=== PATIENT | male | born 1950 | race Caucasian/White ===

== ENCOUNTER 2018-03-08 15:19 | Emergency (ER) | payer BC, MEDICARE ==
[~2018-03-08] VITALS: Ht 190.5 cm; Wt 67.4 kg
[2018-03-08 15:23] VITALS: BP 119/68
== END 2018-03-08 16:25 | disposition home or self-care (01) ==
LOC: ED 16:18
DX: C76.0 Malignant neoplasm of head, face and neck (principal); C79.89 Secondary malignant neoplasm of other specified sites
CPT/HCPCS: 99283

== ENCOUNTER 2018-03-09 23:20 | Inpatient (IN) | payer MEDICARE ==
[~2018-03-09] VITALS: Ht 190.5 cm; Wt 65.1 kg
[2018-03-10] MEDS ORDERED: SODIUM CHLORIDE FLUSH 10ML SYR IVF ONE
[2018-03-10] MEDS ORDERED: CLIN150C14 PO (00:04)
[2018-03-10] MEDS ORDERED: PRED50TA PO (00:05)
[2018-03-10] MEDS ORDERED: ACETAMINOPHEN 325 MG TABLET PO PRN ×2 (01:00→12:30)
[2018-03-10] MEDS ORDERED: BISACODYL 10 MG SUPP PR PRN ×2 (01:00→16:00)
[2018-03-10] MEDS ORDERED: ONDANSETRON 2MG/ML, 2ML IVPush PRN (01:00)
[2018-03-10] MEDS ORDERED: ENALAPRILAT 1.25 MG/ML, 2ML IVPush PRN (01:00)
[2018-03-10] MEDS ORDERED: ONDANSETRON ODT 4 MG PO PRN (01:00)
[2018-03-10] MEDS ORDERED: POLYETHYLENE GLYCOL 17 GM PACKET PO PRN (01:00)
[2018-03-10] MEDS ORDERED: DOCUSATE 100 MG CAPSULE PO PRN (01:00)
[2018-03-10] MEDS ORDERED: HYDROcodone/APAP 5/325 TABLET PO PRN (01:00)
[2018-03-10] MEDS: SODIUM CHLORIDE 0.9% 1,000 ML IV SCH ×3 (01:10→17:32)
[2018-03-10 02:08] VITALS: BP 113/70
[2018-03-10 03:26] VITALS: BP 120/59
[2018-03-10] MEDS: LEVOTHYROXINE 100 MCG TABLET PO SCH (05:02)
[2018-03-10 07:28] VITALS: BP 120/59
[2018-03-10 08:12] LABS: MEAN CORPUSCULAR HEMOGLOBIN 29.1 pg (27.5-34.5); MEAN CORPUSCULAR VOLUME 88.2 fL (81-97); MEAN PLATELET VOLUME 8.1 fL (7.4-10.4); PLATELET COUNT 288 x10^3/uL (130-400); RED BLOOD COUNT 3.87 x10^6/uL (4.38-5.82); RED CELL DISTRIBUTION WIDTH 16.4 % (9.4-14.8)
[2018-03-10 08:21] LABS: ANION GAP 8 mmol/L (5-15); CALCIUM 7.6 mg/dL (8.5-10.1); CHLORIDE 97 mmol/L (98-107); CREATININE 0.41 mg/dL (0.7-1.3)
[2018-03-10 08:33] LABS: MD YES
[2018-03-10 08:34] LABS: EOS#(MANUAL) 0.22 x10^3/uL (0.0-0.4); EOS% (MANUAL) 1 % (1-7); LYMPH#(MANUAL) 0.65 x10^3/uL (1-3.4); LYMPHS% (MANUAL) 3 % (22-44); MONOS#(MANUAL) 0.43 x10^3/uL (0.3-2.7); MONOS% (MANUAL) 2 % (2-9); SEG#(MANUAL) 20.21 x10^3/uL (1.8-6.8); SEGS% (MANUAL) 94 % (42-75); TOXIC GRAN 1+
[2018-03-10 08:35] LABS: <PLATELET ESTIMATE> ADEQUATE; <PLT MORPHOLOGY> NORMAL PLT MORPH; <RBC MORPHOLOGY> NORMAL
[2018-03-10] MEDS: CLINDAMYCIN 150 MG CAPSULE PO SCH (08:47)
[2018-03-10] MEDS: predniSONE 50MG TABLET PO SCH (08:47)
[2018-03-10] MEDS ORDERED: LIDOCAINE/PF 1%, 30ML ONE (10:59)
[2018-03-10] MEDS ORDERED: EPINEPHRINE 1 MG/ML, 1ML ONE (10:59)
[2018-03-10] MEDS ORDERED: LIDOCAINE 1%-EPI 1:100K, 30ML INFIL ONE (11:08)
[2018-03-10] MEDS ORDERED: FUROSEMIDE 20 MG/2 ML ONE (11:23)
[2018-03-10] MEDS ORDERED: DEXMEDETOMIDINE 200 MCG/2 ML ONE (11:28)
[2018-03-10] MEDS ORDERED: CEFAZOLIN 1,000 MG ONE (11:36)
[2018-03-10] MEDS ORDERED: PROPOFOL 10 MG/ML, 20ML ONE (11:36)
[2018-03-10] MEDS ORDERED: PHENYLEPHRINE 10 MG/ML ONE (11:36)
[2018-03-10] MEDS ORDERED: MIDAZOLAM 1 MG/ML, 2ML ONE ×2 (11:52→13:01)
[2018-03-10] MEDS ORDERED: FENTANYL PF 100 MCG/2ML ONE (12:01)
[2018-03-10] MEDS ORDERED: HYDROCORTISONE 100 MG INJ. ONE (12:28)
[2018-03-10] MEDS ORDERED: ALBUTEROL SULFATE 2.5 MG/3 ML NPPB PRN (12:30)
[2018-03-10] MEDS ORDERED: FENTANYL PF 100 MCG/2ML IV PRN (12:30)
[2018-03-10] MEDS ORDERED: OXYcodone 5 MG/5 ML ORAL.SOL UDC PO PRN (12:30)
[2018-03-10] MEDS ORDERED: HYDROCORTISONE 100 MG INJ. IVPush ONE (13:00)
[2018-03-10] MEDS ORDERED: MIDAZOLAM 1 MG/ML, 2ML IVPush ONE (13:30)
[2018-03-10] MEDS ORDERED: PHARMACY MAY ADJ FOR RENAL FX MC SCH (16:00)
[2018-03-10] MEDS ORDERED: LIDOCAINE-MPF 1%, 2ML ENDO PRN (16:00)
[2018-03-10] MEDS ORDERED: SENNOSIDES 8.8 MG/5 ML ORAL SOL NG PRN (16:00)
[2018-03-10] MEDS ORDERED: MIDAZOLAM 1 MG/ML, 2ML IVPush PRN (16:00)
[2018-03-10] MEDS: ALBUTEROL/IPRATROPIUM 2.5MG/0.5MG, 3 ML INLINE SCH ×2 (16:00→21:39)
[2018-03-10] MEDS ORDERED: LACTULOSE 20 GM/30 ML UDC NG PRN (16:00)
[2018-03-10] MEDS ORDERED: SENNA/DOCUSATE TABLET NG PRN (16:00)
[2018-03-10 16:27] LABS: ALBUMIN 2.6 g/dL (3.4-5.0); ANION GAP 5 mmol/L (5-15); CALCIUM 7.5 mg/dL (8.5-10.1); CHLORIDE 98 mmol/L (98-107); CREATININE 0.48 mg/dL (0.7-1.3); TRIGLYCERIDES 51 mg/dL (50-200)
[2018-03-10] MEDS: FAMOTIDINE 20 MG/2 ML IV SCH (17:32)
[2018-03-10 21:56] VITALS: BP 101/55
[2018-03-11] MEDS: ALBUTEROL/IPRATROPIUM 2.5MG/0.5MG, 3 ML INLINE SCH ×3 (01:40→11:00)
[2018-03-11 02:33] LABS: ALANINE AMINOTRANSFERASE 20 U/L (12-78); ALBUMIN 2.5 g/dL (3.4-5.0); ANION GAP 7 mmol/L (5-15); CALCIUM 7.4 mg/dL (8.5-10.1); CHLORIDE 102 mmol/L (98-107); CREATININE 0.56 mg/dL (0.7-1.3)
[2018-03-11 02:36] LABS: ALKALINE PHOSPHATASE 67 U/L (45-117); BILIRUBIN,TOTAL 0.6 mg/dL (0.2-1.0); TOTAL PROTEIN 5.4 g/dL (6.4-8.2)
[2018-03-11 02:39] LABS: BASOPHILS # (AUTO) 0.03 x10^3/uL (0-0.1); BASOPHILS % (AUTO) 0 % (0-1); EOSINOPHILS # (AUTO) 0.13 x10^3/uL (0-0.4); EOSINOPHILS % (AUTO) 1 % (1-7); LYMPHOCYTES # (AUTO) 0.63 x10^3/uL (1-3.4); LYMPHOCYTES % (AUTO) 5 % (22-44); MD NO; MEAN CORPUSCULAR HEMOGLOBIN 29.8 pg (27.5-34.5); MEAN CORPUSCULAR HGB CONC 33.4 g/dL (33.2-36.2); MEAN CORPUSCULAR VOLUME 89.3 fL (81-97); MEAN PLATELET VOLUME 7.8 fL (7.4-10.4); MONOCYTES # (AUTO) 0.35 x10^3/uL (0.2-0.8); MONOCYTES % (AUTO) 3 % (2-9); NEUTROPHILS % (AUTO) 91 % (42-75); PLATELET COUNT 268 x10^3/uL (130-400); RED BLOOD COUNT 3.32 x10^6/uL (4.38-5.82); RED CELL DISTRIBUTION WIDTH 16.4 % (9.4-14.8)
[2018-03-11 04:00] VITALS: BP 101/56
[2018-03-11] MEDS: FAMOTIDINE 20 MG/2 ML IV SCH ×2 (04:53→18:01)
[2018-03-11] MEDS: LEVOTHYROXINE 100 MCG TABLET PO SCH (06:07)
[2018-03-11] MEDS: SODIUM CHLORIDE 0.9% 1,000 ML IV SCH ×2 (06:42→20:17)
[2018-03-11] MEDS ORDERED: PROPOFOL 100 ML IV ONE ×2 (07:57→09:10)
[2018-03-11] MEDS: PROPOFOL 100 ML IV PRN ×3 (08:00→20:17)
[2018-03-11] MEDS ORDERED: VECURONIUM 10 MG ONE ×2 (08:06→09:23)
[2018-03-11] MEDS: VECURONIUM 10 MG IVPush PRN ×3 (08:10→11:34)
[2018-03-11] MEDS: predniSONE 50MG TABLET PO SCH (09:00)
[2018-03-11] MEDS: CLINDAMYCIN 150 MG CAPSULE PO SCH (09:00)
[2018-03-11] MEDS ORDERED: LIDOCAINE-MPF 2% ,5ML ONE (09:00)
[2018-03-11] MEDS ORDERED: VISIPAQUE 320MG/ML, 50ML BOTTLE ONE (13:45)
[2018-03-11] MEDS ORDERED: VISIPAQUE 320 MG/ML, 150ML BOTTLE ONE (13:45)
[2018-03-12] MEDS: PROPOFOL 100 ML IV PRN (01:40)
[2018-03-12] MEDS: FENTANYL PF 100 MCG/2ML IVPush PRN (03:39)
[2018-03-12 04:00] VITALS: BP 97/61
[2018-03-12 04:24] LABS: ANION GAP 5 mmol/L (5-15); CALCIUM 7.5 mg/dL (8.5-10.1); CHLORIDE 107 mmol/L (98-107); CREATININE 0.33 mg/dL (0.7-1.3)
[2018-03-12 04:25] LABS: BASOPHILS # (AUTO) 0.02 x10^3/uL (0-0.1); BASOPHILS % (AUTO) 0 % (0-1); EOSINOPHILS # (AUTO) 0.07 x10^3/uL (0-0.4); EOSINOPHILS % (AUTO) 1 % (1-7); LYMPHOCYTES # (AUTO) 0.37 x10^3/uL (1-3.4); LYMPHOCYTES % (AUTO) 4 % (22-44); MD NO; MEAN CORPUSCULAR HEMOGLOBIN 29.1 pg (27.5-34.5); MEAN CORPUSCULAR HGB CONC 33.1 g/dL (33.2-36.2); MEAN PLATELET VOLUME 8.1 fL (7.4-10.4); MONOCYTES # (AUTO) 0.31 x10^3/uL (0.2-0.8); MONOCYTES % (AUTO) 4 % (2-9); NEUTROPHILS # (AUTO) 7.67 x10^3/uL (1.8-6.8); NEUTROPHILS % (AUTO) 91 % (42-75); PLATELET COUNT 204 x10^3/uL (130-400); RED BLOOD COUNT 2.73 x10^6/uL (4.38-5.82); RED CELL DISTRIBUTION WIDTH 16.6 % (9.4-14.8)
[2018-03-12] MEDS: FAMOTIDINE 20 MG/2 ML IV SCH ×2 (04:49→16:13)
[2018-03-12] MEDS: LEVOTHYROXINE 100 MCG TABLET PO SCH (06:09)
[2018-03-12] MEDS: SODIUM CHLORIDE 0.9% 1,000 ML IV SCH ×2 (06:10→16:13)
[2018-03-12] MEDS: predniSONE 50MG TABLET PO SCH (08:34)
[2018-03-12] MEDS: morphine SULFATE 10 MG/ML, 1ML IVPush PRN (20:42)
[2018-03-13] MEDS: FENTANYL PF 100 MCG/2ML IVPush PRN (01:48)
[2018-03-13] MEDS: SODIUM CHLORIDE 0.9% 1,000 ML IV SCH (01:49)
[2018-03-13 03:51] LABS: MEAN CORPUSCULAR HEMOGLOBIN 29.1 pg (27.5-34.5); MEAN CORPUSCULAR HGB CONC 32.9 g/dL (33.2-36.2); MEAN CORPUSCULAR VOLUME 88.3 fL (81-97); MEAN PLATELET VOLUME 8.1 fL (7.4-10.4); PLATELET COUNT 162 x10^3/uL (130-400); RED BLOOD COUNT 2.62 x10^6/uL (4.38-5.82); RED CELL DISTRIBUTION WIDTH 16.2 % (9.4-14.8)
[2018-03-13 03:56] LABS: ANION GAP 4 mmol/L (5-15); CALCIUM 7.6 mg/dL (8.5-10.1); CHLORIDE 104 mmol/L (98-107); CREATININE 0.46 mg/dL (0.7-1.3); TRIGLYCERIDES 35 mg/dL (50-200)
[2018-03-13] MEDS: FAMOTIDINE 20 MG/2 ML IV SCH (03:56)
[2018-03-13 03:58] LABS: MD YES
[2018-03-13 04:02] LABS: ANISOCYTOSIS 1+; LYMPHS% (MANUAL) 1 % (22-44); MONOS#(MANUAL) 0.38 x10^3/uL (0.3-2.7); MONOS% (MANUAL) 4 % (2-9); OVALOCYTES 1+; SEG#(MANUAL) 9.12 x10^3/uL (1.8-6.8); SEGS% (MANUAL) 95 % (42-75)
[2018-03-13 04:03] LABS: SCHISTOCYTES 1+
[2018-03-13 04:04] LABS: <PLATELET ESTIMATE> ADEQUATE; <PLT MORPHOLOGY> NORMAL PLT MORPH; POLYCHROMASIA 1+; TOXIC GRAN 1+
[2018-03-13] MEDS: morphine SULFATE 10 MG/ML, 1ML IVPush PRN ×2 (05:00→23:14)
[2018-03-13] MEDS: LEVOTHYROXINE 100 MCG TABLET PO SCH (05:59)
[2018-03-13] MEDS ORDERED: MAGNESIUM SULFATE PMX 2GM/50ML 50 ML IV ONE (08:30)
[2018-03-13] MEDS ORDERED: POTASSIUM PHOSPHATE 44 MEQ in SODIUM CHLORIDE 0.9% 500 ML IV ONE (08:30)
[2018-03-13] MEDS: PIPERACILLIN/TAZO/PMX 3.375GM 50 ML IV SCH ×3 (08:56→20:04)
[2018-03-13] MEDS: predniSONE 50MG TABLET PO SCH (09:23)
[2018-03-13] MEDS: FAMOTIDINE 20 MG TABLET NG SCH (20:06)
[2018-03-14] VITALS (7 sets, daily range): BP systolic 100–133; BP diastolic 53–76
[2018-03-14] MEDS: morphine SULFATE 10 MG/ML, 1ML IVPush PRN ×3 (02:07→23:09)
[2018-03-14] MEDS: PIPERACILLIN/TAZO/PMX 3.375GM 50 ML IV SCH ×4 (02:07→20:49)
[2018-03-14] MEDS: LEVOTHYROXINE 100 MCG TABLET PO SCH (04:40)
[2018-03-14 05:07] LABS: MEAN CORPUSCULAR HEMOGLOBIN 29.7 pg (27.5-34.5); MEAN CORPUSCULAR HGB CONC 33.7 g/dL (33.2-36.2); MEAN CORPUSCULAR VOLUME 88.2 fL (81-97); MEAN PLATELET VOLUME 8.3 fL (7.4-10.4); PLATELET COUNT 139 x10^3/uL (130-400); RED BLOOD COUNT 2.36 x10^6/uL (4.38-5.82); RED CELL DISTRIBUTION WIDTH 16.9 % (9.4-14.8)
[2018-03-14 05:14] LABS: ALBUMIN 1.9 g/dL (3.4-5.0); ANION GAP 7 mmol/L (5-15); CALCIUM 7.7 mg/dL (8.5-10.1); CHLORIDE 101 mmol/L (98-107)
[2018-03-14 05:17] LABS: ALANINE AMINOTRANSFERASE 34 U/L (12-78); ALKALINE PHOSPHATASE 71 U/L (45-117); BILIRUBIN,TOTAL 0.5 mg/dL (0.2-1.0); CREATININE 0.45 mg/dL (0.7-1.3); TOTAL PROTEIN 4.8 g/dL (6.4-8.2)
[2018-03-14 05:37] LABS: MD YES
[2018-03-14 05:41] LABS: BAND#(MANUAL) 0.08 x10^3/uL; BANDS%(MANUAL) 1 % (0-7); LYMPH#(MANUAL) 0.16 x10^3/uL (1-3.4); LYMPHS% (MANUAL) 2 % (22-44); MONOS#(MANUAL) 0.08 x10^3/uL (0.3-2.7); MONOS% (MANUAL) 1 % (2-9); SEG#(MANUAL) 7.49 x10^3/uL (1.8-6.8); SEGS% (MANUAL) 96 % (42-75)
[2018-03-14 05:42] LABS: ANISOCYTOSIS 1+; OVALOCYTES 1+; TOXIC GRAN 1+
[2018-03-14 05:43] LABS: SCHISTOCYTES 1+
[2018-03-14 05:44] LABS: POLYCHROMASIA 1+
[2018-03-14 05:45] LABS: <PLATELET ESTIMATE> ADEQUATE; <PLT MORPHOLOGY> NORMAL PLT MORPH; ECHINOCYTES 1+
[2018-03-14] MEDS ORDERED: POTASSIUM PHOSPHATE 44 MEQ in SODIUM CHLORIDE 0.9% 500 ML IV ONE (08:30)
[2018-03-14] MEDS ORDERED: GUAIFENESIN ER 600 MG TABLET PO SCH (09:00)
[2018-03-14] MEDS ORDERED: GUAIFENESIN 100 MG/5 ML, 10ML UDC ONE (10:04)
[2018-03-14] MEDS: FAMOTIDINE 20 MG TABLET NG SCH (10:06)
[2018-03-14] MEDS: predniSONE 50MG TABLET PO SCH (10:06)
[2018-03-14] MEDS: GUAIFENESIN 100 MG/5 ML, 10ML UDC PO SCH ×3 (10:06→20:50)
[2018-03-14] MEDS: FAMOTIDINE 40 MG/5 ML ORAL SUSP NG SCH (20:50)
[2018-03-14] MEDS ORDERED: MORPHINE SULFATE 4 MG/ML, 1ML ONE (23:05)
[2018-03-15] MEDS: PIPERACILLIN/TAZO/PMX 3.375GM 50 ML IV SCH ×4 (02:33→20:37)
[2018-03-15] MEDS: GUAIFENESIN 100 MG/5 ML, 10ML UDC PO SCH ×4 (04:36→22:02)
[2018-03-15] MEDS: LEVOTHYROXINE 100 MCG TABLET PO SCH (04:36)
[2018-03-15 05:16] LABS: BASOPHILS % (AUTO) 0 % (0-1); EOSINOPHILS # (AUTO) 0.02 x10^3/uL (0-0.4); EOSINOPHILS % (AUTO) 0 % (1-7); LYMPHOCYTES # (AUTO) 0.43 x10^3/uL (1-3.4); LYMPHOCYTES % (AUTO) 7 % (22-44); MD NO; MEAN CORPUSCULAR HEMOGLOBIN 30.1 pg (27.5-34.5); MEAN CORPUSCULAR HGB CONC 33.6 g/dL (33.2-36.2); MEAN CORPUSCULAR VOLUME 89.5 fL (81-97); MEAN PLATELET VOLUME 8.6 fL (7.4-10.4); MONOCYTES # (AUTO) 0.45 x10^3/uL (0.2-0.8); MONOCYTES % (AUTO) 7 % (2-9); NEUTROPHILS # (AUTO) 5.46 x10^3/uL (1.8-6.8); NEUTROPHILS % (AUTO) 86 % (42-75); PLATELET COUNT 159 x10^3/uL (130-400); RED BLOOD COUNT 2.58 x10^6/uL (4.38-5.82); RED CELL DISTRIBUTION WIDTH 16.4 % (9.4-14.8)
[2018-03-15 05:25] LABS: CHLORIDE 101 mmol/L (98-107)
[2018-03-15 05:32] LABS: ALANINE AMINOTRANSFERASE 89 U/L (12-78); ALBUMIN 1.9 g/dL (3.4-5.0); ALKALINE PHOSPHATASE 115 U/L (45-117); ANION GAP 4 mmol/L (5-15); BILIRUBIN,TOTAL 0.6 mg/dL (0.2-1.0); CALCIUM 8.1 mg/dL (8.5-10.1); CREATININE 0.53 mg/dL (0.7-1.3)
[2018-03-15 08:12] VITALS: BP 115/54
[2018-03-15] MEDS: predniSONE 50MG TABLET PO SCH (10:08)
[2018-03-15] MEDS: FAMOTIDINE 40 MG/5 ML ORAL SUSP NG SCH ×2 (10:08→20:36)
[2018-03-15] MEDS: morphine SULFATE 10 MG/ML, 1ML IVPush PRN ×2 (18:31→22:02)
[2018-03-15 20:18] VITALS: BP 101/56
[2018-03-16] VITALS (7 sets, daily range): BP systolic 101–124; BP diastolic 50–65
[2018-03-16] MEDS: morphine SULFATE 10 MG/ML, 1ML IVPush PRN ×2 (01:12→20:24)
[2018-03-16] MEDS: PIPERACILLIN/TAZO/PMX 3.375GM 50 ML IV SCH ×4 (02:24→22:33)
[2018-03-16 05:19] LABS: ALANINE AMINOTRANSFERASE 96 U/L (12-78); ANION GAP 5 mmol/L (5-15); CALCIUM 8.4 mg/dL (8.5-10.1); CHLORIDE 99 mmol/L (98-107); CREATININE 0.57 mg/dL (0.7-1.3)
[2018-03-16 05:22] LABS: ALKALINE PHOSPHATASE 120 U/L (45-117); BILIRUBIN,TOTAL 0.5 mg/dL (0.2-1.0); TOTAL PROTEIN 5.4 g/dL (6.4-8.2)
[2018-03-16 05:26] LABS: MEAN CORPUSCULAR HEMOGLOBIN 30.5 pg (27.5-34.5); MEAN CORPUSCULAR HGB CONC 33.9 g/dL (33.2-36.2); MEAN CORPUSCULAR VOLUME 89.9 fL (81-97); MEAN PLATELET VOLUME 8.7 fL (7.4-10.4); PLATELET COUNT 200 x10^3/uL (130-400); RED BLOOD COUNT 2.91 x10^6/uL (4.38-5.82); RED CELL DISTRIBUTION WIDTH 16.9 % (9.4-14.8)
[2018-03-16] MEDS: LEVOTHYROXINE 100 MCG TABLET PO SCH (05:56)
[2018-03-16] MEDS: GUAIFENESIN 100 MG/5 ML, 10ML UDC PO SCH ×4 (05:56→20:15)
[2018-03-16 05:58] LABS: BASOPHILS % (AUTO) 0 % (0-1); EOSINOPHILS # (AUTO) 0.02 x10^3/uL (0-0.4); EOSINOPHILS % (AUTO) 0 % (1-7); LYMPHOCYTES # (AUTO) 0.38 x10^3/uL (1-3.4); LYMPHOCYTES % (AUTO) 4 % (22-44); MD SCAN; MONOCYTES # (AUTO) 0.55 x10^3/uL (0.2-0.8); MONOCYTES % (AUTO) 5 % (2-9); NEUTROPHILS # (AUTO) 9.43 x10^3/uL (1.8-6.8); NEUTROPHILS % (AUTO) 91 % (42-75)
[2018-03-16] MEDS: FAMOTIDINE 40 MG/5 ML ORAL SUSP NG SCH ×2 (07:45→20:15)
[2018-03-16] MEDS: predniSONE 50MG TABLET PO SCH (09:00)
[2018-03-16] MEDS ORDERED: MIDAZOLAM 1 MG/ML, 5ML ONE (10:28)
[2018-03-16] MEDS ORDERED: FENTANYL PF 100 MCG/2ML ONE (10:28)
[2018-03-16] MEDS ORDERED: FAMO40OR3 NG (16:14)
[2018-03-16] MEDS ORDERED: LEVO100T PO (16:14)
[2018-03-16] MEDS ORDERED: MORPHINE SULFATE 4 MG/ML, 1ML ONE (20:22)
[2018-03-17 00:34] VITALS: BP 99/58
[2018-03-17] MEDS ORDERED: MORPHINE SULFATE 4 MG/ML, 1ML ONE (02:12)
[2018-03-17] MEDS: GUAIFENESIN 100 MG/5 ML, 10ML UDC PO SCH (02:15)
[2018-03-17 05:39] LABS: BASOPHILS % (AUTO) 0 % (0-1); EOSINOPHILS # (AUTO) 0.02 x10^3/uL (0-0.4); EOSINOPHILS % (AUTO) 0 % (1-7); LYMPHOCYTES # (AUTO) 0.37 x10^3/uL (1-3.4); LYMPHOCYTES % (AUTO) 4 % (22-44); MD NO; MEAN CORPUSCULAR HEMOGLOBIN 30.5 pg (27.5-34.5); MEAN CORPUSCULAR HGB CONC 33.9 g/dL (33.2-36.2); MEAN CORPUSCULAR VOLUME 90.2 fL (81-97); MEAN PLATELET VOLUME 8.9 fL (7.4-10.4); MONOCYTES # (AUTO) 0.54 x10^3/uL (0.2-0.8); MONOCYTES % (AUTO) 5 % (2-9); NEUTROPHILS # (AUTO) 9.07 x10^3/uL (1.8-6.8); NEUTROPHILS % (AUTO) 91 % (42-75); PLATELET COUNT 201 x10^3/uL (130-400); RED BLOOD COUNT 2.59 x10^6/uL (4.38-5.82); RED CELL DISTRIBUTION WIDTH 17.3 % (9.4-14.8)
[2018-03-17] MEDS: PIPERACILLIN/TAZO/PMX 3.375GM 50 ML IV SCH (05:49)
[2018-03-17] MEDS ORDERED: AMOX1TAB64 PO (05:51)
[2018-03-17 05:53] LABS: ALBUMIN 1.7 g/dL (3.4-5.0); ANION GAP 8 mmol/L (5-15); CALCIUM 7.4 mg/dL (8.5-10.1); CHLORIDE 105 mmol/L (98-107)
[2018-03-17] MEDS: LEVOTHYROXINE 100 MCG TABLET PO SCH (05:54)
[2018-03-17 05:58] LABS: ALANINE AMINOTRANSFERASE 65 U/L (12-78); ALKALINE PHOSPHATASE 92 U/L (45-117); BILIRUBIN,TOTAL 0.4 mg/dL (0.2-1.0); CREATININE 0.48 mg/dL (0.7-1.3); TOTAL PROTEIN 4.7 g/dL (6.4-8.2)
[2018-03-17 06:22] VITALS: BP 110/67
== END 2018-03-17 08:40 | disposition home or self-care (01) | DRG 3 ==
LOC: ED 23:44 → EDIP 23:50 → 3NW 03-10 00:37 → CCU 03-10 13:21 → 3NW 03-14 11:37 → CCU 03-16 11:59 → 3NW 03-16 14:26
PROVIDERS: ADMIT Internal Medicine; ATTEND Internal Medicine
PROC: 0BJ08ZZ Inspection of Tracheobronchial Tree, Via Natural or Artificial Opening Endoscopic (ICD-10-PCS; 2018-03-10)
PROC: 0B110F4 Bypass Trachea to Cutaneous with Tracheostomy Device, Open Approach (ICD-10-PCS; principal; 2018-03-10 13:00)
PROC: 03LM3DZ Occlusion of Right External Carotid Artery with Intraluminal Device, Percutaneous Approach (ICD-10-PCS; 2018-03-11)
PROC: 03L Upper Arteries, Occlusion (ICD-10-PCS; 2018-03-11)
PROC: 03LY3DZ Occlusion of Upper Artery with Intraluminal Device, Percutaneous Approach (ICD-10-PCS; 2018-03-11)
PROC: 5A1935Z Respiratory Ventilation, Less than 24 Consecutive Hours (ICD-10-PCS; 2018-03-12)
PROC: 30233N1 Transfusion of Nonautologous Red Blood Cells into Peripheral Vein, Percutaneous Approach (ICD-10-PCS; 2018-03-14)
DX: J96.00 Acute respiratory failure, unspecified whether with hypoxia or hypercapnia (principal); E43 Unspecified severe protein-calorie malnutrition; E87.1 Hypo-osmolality and hyponatremia; E44.0 Moderate protein-calorie malnutrition; D62 Acute posthemorrhagic anemia; Z99.11 Dependence on respirator [ventilator] status; Z68.1 Body mass index [BMI] 19.9 or less, adult; C32.9 Malignant neoplasm of larynx, unspecified; C76.0 Malignant neoplasm of head, face and neck; Z66 Do not resuscitate; Z51.5 Encounter for palliative care; D72.829 Elevated white blood cell count, unspecified; E03.9 Hypothyroidism, unspecified; I10 Essential (primary) hypertension; Z85.89 Personal history of malignant neoplasm of other organs and systems; Z85.818 Personal history of malignant neoplasm of other sites of lip, oral cavity, and pharynx; C02.9 Malignant neoplasm of tongue, unspecified; Z85.810 Personal history of malignant neoplasm of tongue; Z93.1 Gastrostomy status; Z90.89 Acquired absence of other organs
CPT/HCPCS: 36217; 36415; 36600; 61626; 71045; 75774; 75894; 76937; 80048; 80053; 82040; 82803; 83735; 84100; 84145; 84478; 85014; 85018; 85025; 86850; 86900; 86923; 87070; 87081; 87205; 93005; 94002; 94003; 99285; C1889; J0171; J0690; J2250; J2543; J2704; J3010; J3490; J7620; Q9967; 92523-GN; C1751; C1760; C1769; C1894; J1720; J1940; J2270; J2370; J3475; J7030; J7040; J7512; P9016; S0028

== ENCOUNTER 2018-03-22 07:45 | Emergency (ER) | payer MEDICARE, BC ==
[~2018-03-22] VITALS: Ht 182.9 cm; Wt 68.1 kg
[~2018-03-22 07:45] MED LIST: AMOX1TAB64 PO; CLIN150C14 PO; FAMO40OR3 NG; LEVO100T PO; PRED50TA PO
[2018-03-22 07:49] VITALS: BP 94/40
== END 2018-03-22 09:20 | disposition home or self-care (01) ==
LOC: ED 09:18
DX: Z43.1 Encounter for attention to gastrostomy (principal)
CPT/HCPCS: 71045; 99284

== ENCOUNTER 2018-04-03 17:41 | Observation (INO) | payer MEDICARE ==
[2018-04-03] VITALS (10 sets, daily range): BP systolic 107–121; BP diastolic 54–77
[~2018-04-03] VITALS: Ht 188 cm; Wt 68.3 kg
[2018-04-03 18:36] LABS: ALANINE AMINOTRANSFERASE 26 U/L (12-78); ALBUMIN 2.3 g/dL (3.4-5.0); ANION GAP 6 mmol/L (5-15); CALCIUM 8.2 mg/dL (8.5-10.1); CHLORIDE 100 mmol/L (98-107); CREATININE 0.47 mg/dL (0.7-1.3)
[2018-04-03 18:38] LABS: ALKALINE PHOSPHATASE 62 U/L (45-117); BILIRUBIN,TOTAL 0.3 mg/dL (0.2-1.0); TOTAL PROTEIN 5.9 g/dL (6.4-8.2)
[2018-04-03 18:52] LABS: MD YES; MEAN CORPUSCULAR HEMOGLOBIN 30.6 pg (27.5-34.5); MEAN CORPUSCULAR HGB CONC 34.5 g/dL (33.2-36.2); MEAN CORPUSCULAR VOLUME 88.6 fL (81-97); MEAN PLATELET VOLUME 7.9 fL (7.4-10.4); PLATELET COUNT 51 x10^3/uL (130-400); RED BLOOD COUNT 2.36 x10^6/uL (4.38-5.82); RED CELL DISTRIBUTION WIDTH 16.4 % (9.4-14.8)
[2018-04-03 18:54] LABS: BAND#(MANUAL) 0.03 x10^3/uL; BANDS%(MANUAL) 1 % (0-7); LYMPH#(MANUAL) 0.17 x10^3/uL (1-3.4); LYMPHS% (MANUAL) 6 % (22-44); SEGS% (MANUAL) 93 % (42-75)
[2018-04-03 18:55] LABS: <RBC MORPHOLOGY> NORMAL
[2018-04-03 18:56] LABS: <PLATELET ESTIMATE> DECREASED
[2018-04-03 18:57] LABS: <PLT MORPHOLOGY> NORMAL PLT MORPH
[2018-04-03] MEDS ORDERED: TEMAZEPAM 15 MG CAPSULE PO PRN (22:30)
[2018-04-03] MEDS ORDERED: SODIUM CHLORIDE 0.9% 1,000 ML IV SCH (22:30)
[2018-04-03] MEDS ORDERED: TEMAZEPAM 15 MG CAPSULE GT PRN (23:00)
[2018-04-04 00:34] VITALS: BP 116/46
[2018-04-04 01:00] VITALS: BP 116/49
[2018-04-04 04:27] LABS: MEAN CORPUSCULAR HEMOGLOBIN 31.1 pg (27.5-34.5); MEAN CORPUSCULAR HGB CONC 34.6 g/dL (33.2-36.2); MEAN CORPUSCULAR VOLUME 89.9 fL (81-97); RED BLOOD COUNT 2.68 x10^6/uL (4.38-5.82); RED CELL DISTRIBUTION WIDTH 15.8 % (9.4-14.8)
[2018-04-04 04:41] LABS: PLATELET COUNT 64 x10^3/uL (130-400)
[2018-04-04 04:43] LABS: BASOPHILS % (AUTO) 0 % (0-1); EOSINOPHILS % (AUTO) 0 % (1-7); LYMPHOCYTES # (AUTO) 0.24 x10^3/uL (1-3.4); LYMPHOCYTES % (AUTO) 9 % (22-44); MD SCAN; MONOCYTES # (AUTO) 0.06 x10^3/uL (0.2-0.8); MONOCYTES % (AUTO) 2 % (2-9); NEUTROPHILS # (AUTO) 2.36 x10^3/uL (1.8-6.8); NEUTROPHILS % (AUTO) 89 % (42-75)
[2018-04-04] MEDS ORDERED: LEVOTHYROXINE 100 MCG TABLET PO SCH (06:00)
[2018-04-04 06:53] VITALS: BP 97/56
== END 2018-04-04 10:50 | disposition still patient (30) ==
LOC: ED 18:45 → SUATTDRO 19:44 → INTOOBSV 20:45 → EDIP 20:45 → 3NW 20:52
PROVIDERS: ADMIT Hospitalist; ATTEND Hospitalist
DX: D61.818 Other pancytopenia (principal); E43 Unspecified severe protein-calorie malnutrition; C76.0 Malignant neoplasm of head, face and neck; Z93.0 Tracheostomy status
CPT/HCPCS: 36415; 36430; 80053; 85025; 86850; 86900; 86923; 99285; G0378; J7030; P9016